=== PATIENT | male | born 1960 | race Hispanic/Latino ===

== ENCOUNTER 2022-09-05 10:44 | Emergency (ER) | payer OTHER ==
[~2022-09-05] VITALS: Ht 167.6 cm; Wt 97.5 kg
[2022-09-05 10:54] VITALS: BP 109/78
[2022-09-05] MEDS ORDERED: CEPH500B PO (11:37)
[2022-09-05] MEDS ORDERED: MUPI22OI2 TP (11:37)
== END 2022-09-05 11:43 | disposition home or self-care (01) ==
LOC: EDH 10:44
DX: T78.49XA Other allergy, initial encounter (principal); E78.00 Pure hypercholesterolemia, unspecified; I10 Essential (primary) hypertension; F41.9 Anxiety disorder, unspecified; W57.XXXA Bitten or stung by nonvenomous insect and other nonvenomous arthropods, initial encounter

== ENCOUNTER → 2023-01-10 | Outpatient (CLI) | payer OTHER ==
[~2023-01-10] MED LIST: CEPH500B PO; MUPI22OI2 TP
== END | disposition home or self-care (01) ==
LOC: SHCH 09:46
PROVIDERS: ATTEND Internal Medicine
DX: I25.10 Atherosclerotic heart disease of native coronary artery without angina pectoris (principal); I35.1 Nonrheumatic aortic (valve) insufficiency; E78.5 Hyperlipidemia, unspecified; I10 Essential (primary) hypertension; Z95.5 Presence of coronary angioplasty implant and graft
CPT/HCPCS: 93306